=== PATIENT | male | born 1985 | race Caucasian/White ===

== ENCOUNTER 2020-09-20 23:05 | Emergency (ER) | payer BC ==
[~2020-09-20 23:05] MED LIST: LODINE CAP 300300 MG PO
[2020-09-21 01:58] LABS: HEMOGLOBIN 15.3 gm/dl (14.0-17.5); RED BLOOD COUNT 5.02 M/UL (4.20-5.50); WHITE BLOOD COUNT 5.1 K/UL (4.5-11.0)
[2020-09-21 02:16] LABS: BUN/CREATININE RATIO 12 (0-10)
[2020-09-21] MEDS ORDERED: LEVOFLOXACIN750 MG PO (03:54)
[2020-09-21] MEDS ORDERED: ZOFRAN4 MG PO (03:54)
== END 2020-09-21 04:03 | disposition home or self-care (01) ==
LOC: ER1 23:05
PROVIDERS: Physician Assistant Medical
DX: N30.90 Cystitis, unspecified without hematuria (principal); J18.9 Pneumonia, unspecified organism; K21.9 Gastro-esophageal reflux disease without esophagitis; I10 Essential (primary) hypertension; E78.5 Hyperlipidemia, unspecified; F17.290 Nicotine dependence, other tobacco product, uncomplicated; Z88.0 Allergy status to penicillin; Z79.899 Other long term (current) drug therapy
CPT/HCPCS: 80053; 81001; 85025; 85652; 86140; 87086; 99284

== ENCOUNTER → 2020-09-27 | Outpatient (CLI) | payer BC ==
[~2020-09-27] MED LIST changes: +LEVOFLOXACIN750 MG PO; +ZOFRAN4 MG PO
== END ==
LOC: RAD 18:20
DX: J18.9 Pneumonia, unspecified organism (principal); Q25.49 Other congenital malformations of aorta
CPT/HCPCS: 71046

== ENCOUNTER → 2021-08-08 | Outpatient (CLI) | payer BC | LOC: RAD 08:14 | DX: M25.561 Pain in right knee (principal); M25.562 Pain in left knee; M54.50 Low back pain, unspecified | CPT/HCPCS: 72100; 73564 ==